=== PATIENT | female | born 1975 | race Caucasian/White ===

== ENCOUNTER → 2020-07-18 | Outpatient (CLI) | payer OTHER ==
[2020-07-18 14:20] VITALS: BP 138/56
--- NOTE | 2020-07-18 14:34 | REP ---
INDICATION: R93.89 US GUIDED LEFT BREAST/CK CLIP PLACEMENT. COMPARISON: 03/06/2020. TECHNIQUE: ML and CC views left breast performed. FINDINGS: Ultrasound-guided biopsy of a nodule at 12 o'clock in the left breast was performed today. The mammogram shows diffusely dense breast parenchyma. A biopsy clip is seen at 12 o'clock. IMPRESSION: Biopsy clip at 12 o'clock status post ultrasound-guided biopsy of a nodule at that location today. RECOMMENDATION: Clinical follow-up. <Electronically signed by Jeffrey Valenzuela > 07/18/20 [id number]
--- NOTE | 2020-07-18 14:58 | REP ---
INDICATION: R93.89 LEFT BREAST BX/US GUIDED. COMPARISON: None. TECHNIQUE: The procedure was performed under the general supervision of Dr. Valenzuela. The patient has a history of a 1.2 x 1 x 1.6 cm complex cystic and solid mass in the 12 o'clock position of the left breast seen on the previous ultrasound from [facility] performed on 1020 2019. The risks and benefits of the procedure were explained to the patient and informed consent was obtained. The left breast nodule was localized using ultrasound guidance. The skin was prepped and draped in a sterile fashion. 1% Xylocaine was used as a local anesthetic. Using ultrasound guidance a 14-gauge coaxial needle biopsy system was inserted and6 core biopsy samples were obtained. A marker clip (HydroMARK shape 3) was placed at the biopsy site The patient tolerated the procedure well and there were no immediate complications. After the appropriate amount of monitored convalescence, the patient was discharged from the department. FINDINGS: None IMPRESSION: Ultrasound-guided left breast biopsy with marker clip placement (HydroMARK shape 3). <Electronically signed by Daniel Membreno > 07/18/20 1401 <Electronically signed by Jeffrey Valenzuela > 07/18/20 [id number]
== END ==
LOC: M WHCPRO 13:00
PROVIDERS: ATTEND Surgery
DX: N60.12 Diffuse cystic mastopathy of left breast (principal); R93.89 Abnormal findings on diagnostic imaging of other specified body structures

== ENCOUNTER → 2020-11-19 | Outpatient (REF) | payer OTHER | LOC: M SFHCWAGY 19:19 | PROVIDERS: ATTEND Nurse Practitioner Women's Health | DX: Z12.4 Encounter for screening for malignant neoplasm of cervix (principal) ==

== ENCOUNTER → 2021-01-09 | Outpatient (CLI) | payer OTHER ==
--- NOTE | 2021-01-09 09:42 | REP ---
INDICATION: R93.89 6 MO F/U LT BREAST POST BIOPSY,ASSESS STABILITY. COMPARISON: Comparison sonography [facility] March 06, 2020. Comparison ultrasound associated with needle biopsy procedure July 18, 2020. Comparison mammography July 18, 2020. TECHNIQUE: Targeted left breast ultrasound 12 o'clock position. FINDINGS: Heterogeneous fibroglandular background echotexture is seen. The previously placed HydroMARK clip is visualized in the 12 o'clock position at the previous biopsy site. No mass is seen. Tiny cysts are noted in this region as before. IMPRESSION: BI-RADS category 2 benign findings. No suspicious ultrasound features. Previously placed marker clip seen. <Electronically signed by Tom Ziegler > 01/09/21 [id number]
== END ==
LOC: M WHC 08:58
PROVIDERS: ATTEND Surgery
DX: R93.89 Abnormal findings on diagnostic imaging of other specified body structures (principal)

== ENCOUNTER → 2022-01-09 | Outpatient (REF) | payer OTHER | LOC: M PLALAB 09:49 | PROVIDERS: ATTEND Nurse Practitioner Family | DX: Z12.4 Encounter for screening for malignant neoplasm of cervix (principal) | CPT/HCPCS: 87624; G0123 ==

== ENCOUNTER → 2022-01-09 | Outpatient (CLI) | payer OTHER, SELFPAY | LOC: M WHC 07:18 | PROVIDERS: ATTEND Nurse Practitioner Family | DX: Z12.31 Encounter for screening mammogram for malignant neoplasm of breast (principal) ==

== ENCOUNTER → 2023-02-04 | Outpatient (CLI) | payer OTHER | LOC: M WHC 09:57 | PROVIDERS: ATTEND Nurse Practitioner Family | DX: Z12.31 Encounter for screening mammogram for malignant neoplasm of breast (principal) ==

== ENCOUNTER → 2024-11-15 | Outpatient (REF) | payer OTHER ==
[2024-11-17 14:13] LABS: HPV APTIMA Not Detected (Not Detected)
== END ==
LOC: M SFHCWAGY 15:40
PROVIDERS: ATTEND Nurse Practitioner Family
DX: Z12.4 Encounter for screening for malignant neoplasm of cervix (principal)
CPT/HCPCS: 87624; G0123

== ENCOUNTER → 2024-11-15 | Outpatient (CLI) | payer OTHER | LOC: M WHC 13:07 | PROVIDERS: ATTEND Nurse Practitioner Family | DX: Z12.31 Encounter for screening mammogram for malignant neoplasm of breast (principal); R92.323 Mammographic fibroglandular density, bilateral breasts ==